=== PATIENT | male | born 1955 | race Caucasian/White ===

== ENCOUNTER 2016-07-17 08:03 | Inpatient (IN) | payer BC ==
--- NOTE | ~2016-07-17 | OR ---
Unit #: [id number] #: [id number] Patient: LEXII CORBIN [id number] [address] [place], [place] [address] [id number] I MR#: [id number] NAME: LEXII CORBIN ROOM: [facility] Date of Procedure: 07/17/2016 Admission Date: 07/17/2016 Surgeon: Sae Sanders M.D. : 1955 Attending Physician: Sae Sanders M.D. Primary Care Physician: Ibrahima Merida M.D. OPERATIVE REPORT PREOPERATIVE DIAGNOSIS Primary localized osteoarthritis of the right hip. POSTOPERATIVE DIAGNOSIS Primary localized osteoarthritis of the right hip. PROCEDURE PERFORMED Right total hip. ASSISTANTS Lexi Nava and Pierre Dang. ANESTHESIA General. INDICATIONS FOR PROCEDURE This is a 60-year-old gentleman with severe pain in his right hip. He has had pain for months which got progressively worse, limits his walking and standing. X-rays showed he has had avascular necrosis with prolapse and severe arthritis of the right hip. He has tried anti-inflammatories with no relief as well as injections. He is brought to the operating room for a right total hip. DESCRIPTION OF PROCEDURE The patient was brought to the holding room, given 2 g of Kefzol. After this was done he was brought back to the operating room and given a general anesthetic and placed in decubitus position with the right side up. The right hip was prepped and draped in a sterile fashion. A modified Aufranc incision was mapped out and made. The subcu dissected away and the fascia split longitudinally. Short rotators were taken down with the cautery unit. The posterior hip capsule was identified and this was T'd open. The hip was dislocated posteriorly and the neck osteotomy performed at the appropriate level. The head fragment was removed and the femur retracted anteriorly. The labrum was debrided. The acetabulum was reamed up to a 55 and a 56 mm Oketo Gription cup was inserted in 40 degrees of abduction and 20 degrees of forward flexion. A neutral 36 mm liner was trailed and was positioned in the cup. The piriformis sinus was cleaned out with a rongeur and a knife. Starter reamer was positioned and the rigid reamers were used up to 11.5. We then reamed the trial was positioned in the proximal femur and then the trial femoral component which was a 16 x 11 x 130 with a 36 mm standard neck offset Unit #: [id number] #: [id number] Patient: LEXII CORBIN +3, 36 head seemed to give appropriated leg length. The patient then had the hip reduced. It was stable in all directions. Leg lengths seemed to be appropriate. The wound was irrigated with a dilute Betadine solution. The hip was dislocated. The trials were removed. The real liner was impacted into the cup. The real stem was impacted in 20 degrees of anteversion. Once again, a trial reduction was performed and we elected to go with a +3, 36 head, so this was opened and applied. The hip was reduced and was stable. The hip was irrigated with bacitracin, the ropivacaine mixture was injected and then the wound was closed using 0 Vicryl in the fascia, running #2 Stratafix suture in the fascia and 2-0 Vicryl to the subcu. assistant loan processor, Lexi Nava, was present throughout the entire case. Dictated by... Lyndsay Purvis/dustin TD: 07/19/2016 18:09 JOB #: [id number] OPERATIVE REPORT X Sae Sanders MD PROCEDURE OPERATIVE NOTE
--- NOTE | ~2016-07-17 | DS ---
Unit #: [id number] #: [id number] Patient: LEXII CORBIN [id number] [address] [place], [place] [address] [id number] I MR#: [id number] NAME: LEXII CORBIN ROOM: 449 Age: 60 Sex: M Admission Date: 07/17/2016 : 1955 Discharge Date: 07/19/2016 Attending Physician: Sae Sanders M.D. Primary Care Physician: Ibrahima Merida M.D. DISCHARGE SUMMARY ADMITTING DIAGNOSIS Right hip osteoarthritis. DISCHARGE DIAGNOSIS Right hip osteoarthritis. HOSPITAL COURSE On 07/17/2016, Mr. Corbin underwent a right total hip arthroplasty. He tolerated the procedure well. He was transported to the 4th floor where he underwent physical therapy, medical management and anticoagulation therapy. He is doing well and is ready to be discharged. DISPOSITION Stable. DISCHARGE Discharge home with [facility] to follow. MEDICATIONS Medications on discharge include his routine home meds. Dr. Aceves is handling his pain medication. We have prescribed him Percocet 10/325 and Coumadin. FOLLOWUP AND INSTRUCTIONS Mr. Corbin is going to be discharged home. The patient will need a PT and INR drawn every Sunday and . Call the results to [phone] or fax to [phone] attention Jun. Skin roberto are to be DC'd two weeks postop. Please apply Steri-Strips 1/4 inch apart. White BERNARD hose to be worn during the day and can be removed in the evening. The patient christie shower in one week and can drive after seen by Dr. Sanders at their followup appointment. Followup appointment with Dr. Sanders is in six weeks. Please call our office for that appointment date and time. Dictated by... Niels AyalaA.C. for Sae Sanders M.D. MODE/sussy TD: 07/20/2016 07:57 JOB #: [id number] Unit #: [id number] #: [id number] Patient: LEXII CORBIN DISCHARGE SUMMARY X Lexi Nava DISCHARGE SUMMARY
--- NOTE | ~2016-07-17 | CR145 ---
[facility] A Service of [facility] & [facility] RADIOLOGY TEXT RESULTS PATIENT: LEXII CORBIN LOCATION: C4B 449-01 : [birth year] UNIT #: [id number] AGE: [address]: Sae Sanders MD SEX: M ORDER DR: [id number] [facility] [address] [place], [place] [address] [id number] I MR#: [id number] Acc #: [id number] NAME: LEXII CORBIN : 1955 SEX: M STUDY DATE/TIME: 07/17/2016 1341 UNIT: [facility] ROOM: [facility] STUDY DESCRIPTION: CR Hip 1 View Rt Attending Physician: Sae Sanders M.D. Ordering Physician: Sae Sanders M.D. Primary Care Physician: Ibrahima Merida M.D. MEDICAL IMAGING REPORT This report is preliminary unless electronic signature is present EXAM Right hip 07/17/2016 1341 hours HISTORY Right hip pain, postop hip replacement. COMPAR[facility] STUDIES [facility] 10/20/2015 FINDINGS Single AP view demonstrates postop change right hip replacement with a non-screwed acetabular component and a long stem femoral component in anatomic alignment. No fracture is seen. IMPRESSION Postop change right hip replacement with non-screwed acetabular component and long stem femoral component in anatomic alignment. No fracture is seen. Dictated by... Valerie Jaime M.D. THIS IS AN ELECTRONICALLY VERIFIED REPORT Valerie Jaime M.D. at 07/17/2016 6:55 PM Jenise TD: 07/17/2016 15:05 JOB #: [id number] MEDICAL IMAGING REPORT COPY
[~2016-07-17 08:03] MED LIST: ALLOPURINOL300 MG PO; CENTRUM SILVER1 EACH PO; DIOVAN160 MG PO; FENOFIBRATE160 MG PO; FEOSOL PO; FERROUS SULFATE PO; HYDRALAZINE HCL25 MG PO; INDOMETHACIN50 MG PO; MIRAFIBER PO; MULTI VITAMIN1 EACH PO; OPANA ER20 M1 PO; OSTEO BI-FLEX1 EAC2 PO; OXYCODONE IR PO; OXYCODONE15 MG PO; PERCOCET 10/3251 TAB PO; SIMVASTATIN40 MG PO; STAHIST AD TAB1 EACH PO; VALSARTAN-HCTZ1 EAC1 PO
[2016-07-18 03:04] LABS: HEMATOCRIT 27.2 % (38.0-50.0); HEMOGLOBIN 9.2 gm/dL (13.0-16.0)
[2016-07-18 03:23] LABS: INR 1.4; PROTHROMBIN TIME (PATIENT) 14.7 SECONDS (9.6-11.5)
[2016-07-18 03:25] LABS: BLOOD UREA NITROGEN 23 mg/dL (9-23); CALCIUM SERUM 8.4 mg/dL (8.4-10.2); CARBON DIOXIDE 25 mmol/L (22-31); CHLORIDE 106 mmol/L (100-111); GLOM FILT RATE Estimated ABOVE60 mL/min (>60); GLUCOSE FASTING 131 mg/dL (70-110); MAGNESIUM 1.9 mg/dL (1.6-3.0); POTASSIUM 4.5 mmol/L (3.5-5.1); SODIUM 136 mmol/L (135-145)
[2016-07-19 03:33] LABS: HEMATOCRIT 24.9 % (38.0-50.0); HEMOGLOBIN 8.3 gm/dL (13.0-16.0)
[2016-07-19 03:50] LABS: INR 1.9
[2016-07-19] MEDS ORDERED: PERCOCET 10/31 UDTA1 PO (13:07)
[2016-07-19] MEDS ORDERED: COUMADIN6 MG PO (13:08)
== END 2016-07-19 13:51 | disposition home health service (06) | DRG 470 ==
LOC: CSUR 08:03 → CPACUOF 09:20 → C4B 14:22
PROVIDERS: Nurse Practitioner; Orthopaedic Surgery
PROC: 0SR904Z Replacement of Right Hip Joint with Ceramic on Polyethylene Synthetic Substitute, Open Approach (ICD-10-PCS; principal; 2016-07-18)
DX: M16.11 Unilateral primary osteoarthritis, right hip (principal); E66.9 Obesity, unspecified; I10 Essential (primary) hypertension; D62 Acute posthemorrhagic anemia; M10.9 Gout, unspecified; Z96.651 Presence of right artificial knee joint; G89.29 Other chronic pain; Z68.33 Body mass index [BMI] 33.0-33.9, adult; E78.5 Hyperlipidemia, unspecified
CPT/HCPCS: 73501; 80048; 83735; 84295; 85014; 85018; 85610; 94760; 94762; 97110; 97116; 97161; 97166; 97530; 97535; C1776; J0131; J0171; J0330; J0690; J0735; J1100; J1170; J1650; J1885; J2250; J2405; J2795; J3010

== ENCOUNTER 2016-09-12 22:36 | Emergency (ER) | payer BC ==
--- NOTE | ~2016-09-12 | CR150 ---
[facility] A Service of [facility] & [facility] RADIOLOGY TEXT RESULTS PATIENT: LEXII CORBIN LOCATION: [facility] : [birth year] UNIT #: [id number] AGE: [address]: Ravi Campbell MD SEX: M ORDER DR: [id number] [facility] [address] [place], [place] [address] [id number] E MR#: [id number] Acc #: [id number] NAME: LEXII CORBIN : 1955 SEX: M STUDY DATE/TIME: 09/13/2016 00:54 UNIT: [facility] ROOM: STUDY DESCRIPTION: CR Hip Min 2 Views Lt Attending Physician: Michael Campbell M.D. Ordering Physician: Michael Campbell M.D. Primary Care Physician: Ibrahima Merida M.D. MEDICAL IMAGING REPORT This report is preliminary unless electronic signature is present EXAM Left hip and pelvis, 09/13 at 00:54. INDICATIONS Left hip pain for 1 week. No trauma. FINDINGS AP pelvis was obtained in addition to a frog-leg left hip. No comparison. Patient has a well-positioned right hip arthroplasty. There is avascular necrosis of the left femoral head with flattening of the articular surface. There is complete loss of the joint space in the left hip. No acute fracture or dislocation is seen. Note is also made of atherosclerotic disease. Additionally, there is degenerative disease in the lower lumbar spine. IMPRESSION No acute findings. 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 There is complete loss of the joint space in the left hip. Patient has a well-positioned right hip arthroplasty. Dictated by... Janusz Downey Jr., M.D. THIS IS AN ELECTRONICALLY VERIFIED REPORT Janusz Downey Jr., M.D. at 09/13/2016 9:24 PM FERNANDA/jaycob TD: 09/13/2016 09:22 JOB #: [id number] MEDICAL IMAGING REPORT [facility] A Service of [facility] & [facility] RADIOLOGY TEXT RESULTS PATIENT: LEXII CORBIN LOCATION: [facility] : 51 UNIT #: [id number] AGE: [address]: Ravi Campbell MD SEX: M ORDER DR: Page 1 of 1 COPY
[~2016-09-12 22:36] MED LIST changes: +COUMADIN6 MG PO; +PERCOCET 10/31 UDTA1 PO
[2016-09-13 01:18] LABS: BASOPHIL% 0.3 % (0-2.5); DIFF IND NO; EOSINOPHIL% 0.6 % (0.0-7.0); HEMATOCRIT 36.8 % (38.0-50.0); LYMPHOCYTE# 1.2 X10e3 (1.0-3.5); LYMPHOCYTE% 21.8 % (17.0-45.0); MEAN CELL VOLUME 93.2 FL (83-96); MEAN CORPUSCULAR HEMOGLOBIN 30.3 PG (28-34); MEAN CORPUSCULAR HGB CONC 32.5 g/dL (30-36); MONOCYTE# 0.4 X10e3 (0-1.0); MONOCYTE% 7.4 % (3.0-12.0); NEUTROPHIL# 3.8 X10e3 (1.5-7.1); NEUTROPHIL% 69.9 % (40-75); PLATELET COUNT 308 X10e3 (140-420); RED BLOOD COUNT 3.95 X10e (3.90-5.60); RED CELL DISTRIBUTION WIDTH 13.4 % (11.0-15.5); WHITE BLOOD COUNT 5.4 X10e3 (4.0-10.5)
[2016-09-13 01:37] LABS: BUN/CREATININE RATIO 18.57; CALCIUM SERUM 9.2 mg/dL (8.4-10.2); CREATININE SERUM 0.7 mg/dL (0.6-1.4); GLOM FILT RATE Estimated 101.2 mL/min (>60); POTASSIUM 3.4 mmol/L (3.5-5.1)
== END 2016-09-13 02:45 | disposition home or self-care (01) ==
LOC: CED 22:36
PROVIDERS: Emergency Medicine
DX: M16.12 Unilateral primary osteoarthritis, left hip (principal); M19.90 Unspecified osteoarthritis, unspecified site; F17.200 Nicotine dependence, unspecified, uncomplicated
CPT/HCPCS: 36415; 73502; 80048; 85025; 85652; 86140; 96372; 99283; J1170; J2550